=== PATIENT | male | born 1955 | race Caucasian/White ===

== ENCOUNTER 2018-10-03 08:12 | Outpatient (CLI) | payer OTHER | END 2018-10-03 23:59 | disposition home or self-care (01) | LOC: STAR 08:12 | PROVIDERS: ATTEND Orthopaedic Surgery | DX: Z01.818 Encounter for other preprocedural examination (principal); M16.12 Unilateral primary osteoarthritis, left hip; R94.31 Abnormal electrocardiogram [ECG] [EKG] | CPT/HCPCS: 36415; 80053; 85025; 87081; 87147; 93005 ==